=== PATIENT | female | born 1980 | race Caucasian/White ===

== ENCOUNTER → 2017-12-07 | Outpatient (CLI) | payer BC ==
[~2017-12-07] MED LIST: IRON1 CHI; PRENATAL1 TA1
== END ==
LOC: MC.RAD 11-23 14:15
DX: N64.4 Mastodynia (principal)

== ENCOUNTER → 2019-05-09 | Outpatient (CLI) | payer OTHER | LOC: COL.RAD 07:28 | DX: R10.11 Right upper quadrant pain (principal) ==

== ENCOUNTER → 2019-05-25 | Outpatient (CLI) | payer OTHER | LOC: COL.RAD 06:54 | DX: K82.8 Other specified diseases of gallbladder (principal) | CPT/HCPCS: A9537 ==

== ENCOUNTER 2022-03-29 14:04 | Emergency (ER) | payer BC ==
[~2022-03-29] VITALS: Ht 152.4 cm; Wt 82.7 kg
[2022-03-29 14:08] VITALS: TEMP 98.2
[2022-03-29] MEDS ORDERED: AVELOX 400MG T400 MG PO (14:33)
[2022-03-29] MEDS ORDERED: NORCO 325 MG-51 TAB PO (14:34)
[2022-03-29 15:19] VITALS: BP 105/65; PULSE 104
== END 2022-03-29 15:28 | disposition home or self-care (01) ==
LOC: COL.ER 14:04
DX: S41.052A Open bite of left shoulder, initial encounter (principal); S71.152A Open bite, left thigh, initial encounter; S61.051A Open bite of right thumb without damage to nail, initial encounter; Z23 Encounter for immunization; Z88.6 Allergy status to analgesic agent; W54.0XXA Bitten by dog, initial encounter
CPT/HCPCS: J2550